=== PATIENT | female | born 1975 | race Asian ===

== ENCOUNTER 2017-01-11 12:00 | Inpatient (IN) | payer OTHER ==
[2017-01-18] MEDS ORDERED: ELECTROLYTE-148 SOLN 500 ML IV SCH (07:30)
[2017-01-18] MEDS ORDERED: CITRIC ACID/SODIUM CITRATE 30 ML UNIT-DOSE CUP PO ONE (08:15)
[2017-01-18] MEDS ORDERED: TUBERCULIN PPD 5 TU/0.1ML SYRINGE (IN PATIENT USE ONLY) ID ONE (08:15)
[2017-01-18 08:28] VITALS: BMI 31.2
[2017-01-18] MEDS ORDERED: ELECTROLYTE-148 SOLN 1,000 ML IV SCH (08:30)
[2017-01-18] MEDS ORDERED: IBUPROFEN 800 MG/8 ML IJ IVPB PRN (08:46)
[2017-01-18] MEDS ORDERED: ONDANSETRON 4 MG/2 ML VIAL IVPUSH PRN (08:47)
--- NOTE | 2017-01-18 08:49 | HP ---
[id number] of Present Illness: 41 y/o with SIUP at 39 weeks by LMP (38 weeks by ultrasound) here for scheduled repeat section. Patient has history of diabetes, poorly controlled during . Pt also inconsistent with care. Pt admits to +FM, no VB/LOF/Ctx. HIV negative. History Source: Patient, Medical Record Limitations to Obtaining History: No Limitations - Past Medical History [facility]: No: Migraine, Seizure Cardiovascular: No: AFIB, CAD, Deep Vein Thrombosis, [place] Pulmonary: Yes: Bronchitis (h/o bronchitis). No: COPD, Pneumonia Renal/: No: Hematuria, UTI Reproductive: No: Fibroids, PID, Polycystic Ovary Syndrome ...: 7 ...Para: 4 ...Term: 4 ...: 0 ...Spon : 0 ...Induced : 2 ...Multiple Gestation: 0 ...LMP: 04/20/16 ... Weeks Gestation by Dates: 39.0 ...EDC by Dates: 01/25/17 ...EDC by Sono: 02/01/17 Heme/Onc: No: Anemia Infectious Disease: No: AIDS, HIV, MRSA Psych: No: Anxiety, Bipolar, Depression - Past Surgical History Past Surgical History: Yes: (X4) Hx Myomectomy: No Hx Transabdominal Cerclage: No - Smoking History Smoking history: Never smoked Have you smoked in the past 12 months: No - Alcohol/Substance Use Hx Alcohol Use: No - Social History Usual Living Arrangement: Yes: With Spouse ADL: Independent History of Recent Travel: Yes Home Medications - Allergies Allergies/Adverse Reactions: Allergies Allergy/AdvReac Type Severity Reaction Status Date / Time fish oil (anchovy, sardine) Allergy Severe Verified 01/17/17 17:09 pine nut Allergy Intermediate itchy, rash Verified 01/17/17 17:09 No Known Drug Allergies Allergy Verified 01/17/17 17:09 - Home Medications Home Medications: Ambulatory Orders Glyburide/Metformin HCl [Glyburide-Metformin 2.5-500 mg] 2.5 each PO DAILY 01/11 Metformin HCl 500 mg PO BID 01/11/17 Pnv95/Ferrous Fumarate/FA [ Vitamin Tablet] 1 each PO DAILY 01/11/17 Review of Systems - Review of Systems Constitutional: reports: No Symptoms Eyes: reports: No Symptoms HENT: reports: No Symptoms Neck: reports: No Symptoms Cardiovascular: reports: No Symptoms Respiratory: reports: Cough. denies: SOB Gastrointestinal: reports: No Symptoms Genitourinary: reports: No Symptoms Breasts: reports: No Symptoms Reported Musculoskeletal: reports: No Symptoms Integumentary: reports: No Symptoms Neurological: reports: No Symptoms Endocrine: reports: No Symptoms Hematology/Lymphatic: reports: No Symptoms Psychiatric: reports: No Symptoms Physical Exam - Maternity Vital Signs: Vital Signs Temperature 97.7 F 01/18/17 07:05 Pulse Rate 87 01/18/17 07:05 Respiratory Rate 18 01/18/17 07:05 Blood Pressure 123/85 01/18/17 07:05 O2 Sat by Pulse Oximetry (%) Constitutional: Yes: Well Nourished, No Distress, Calm Eyes: Yes: Conjunctiva Clear, EOM Intact HENT: Yes: Atraumatic, Normocephalic Neck: Yes: Supple, Trachea Midline Cardiovascular: Yes: Regular Rate and Rhythm Lungs: Clear to auscultation Breast(s): Yes: WNL - Abdominal Exam/OB Number of Fetuses: Single Presentation: Vertex Contractions: Yes Regularity: Irregular Intensity: Unaware Monitor Mode: External Heart Rate (range): 150 Category: I Decelerations: None - Vaginal Exam/OB Vaginal Bleediing: No Amniotic Membrane Status: Intact Presentation: Vertex/Position - Physical Exam Edema: LLE: 1+, RLE: 1+ (nonpitting) Psychiatric: Yes: Alert, Oriented Hemorrhage Risk Assessment - Risk Factors Medium Risk Factors: Yes: Prior , uterine surgery,or multiple laparotomies, History of previous hemorrhage High Risk Factors: Yes: None Risk Score: 2 Risk Level: High Risk Problem List - Problems (1) Diabetes in Code(s): O24.919 - UNSP DIABETES MELLITUS IN , UNSPECIFIED TRIMESTER (2) Term Code(s): Z34.80 - ENCOUNTER FOR SUPRVSN OF NORMAL , UNSP TRIMESTER (3) History of delivery Code(s): Z98.891 - HISTORY OF UTERINE SCAR FROM PREVIOUS SURGERY Assessment/Plan 41 y/o female with SIUP at 39 weeks gestation for scheduled repeat cesaren section, also with uncontrolled DM - FHTs cat 1 - Pt NPO since 3 am - was light meal of crackers only, anesthesia aware, ok to do C section after 6 hours - Keep pt NPO, apply SCDs, prep patient and OR for c section - anesthesia and nursing aware - DM - BG this a.m. 146, will monitor closely post and consider endocrine consultation
[2017-01-18] MEDS ORDERED: METHYLERGONOVINE MALEATE 0.2 MG/1 ML AMP IM PRN (09:15)
[2017-01-18] MEDS ORDERED: BENZOCAINE 28 GM HEMORRHOIDAL OINTMENT TP PRN (09:15)
[2017-01-18 11:00] LABS: ARTERIAL BLD GAS O2 SATURATION 5.9 % (90-98.9); ARTERIAL BLOOD GAS BASE EXCESS -1.2 meq/l (-2-2); ARTERIAL BLOOD GAS HCO3 28.7 meq/L (22-26); ARTERIAL BLOOD GAS PO2 9.2 mmHg (80-100); ARTERIAL BLOOD GAS pH 7.23 (7.35-7.45)
[2017-01-18 11:01] LABS: LPM/O2% 21%; PT. ON O2? NO; TYPE OF O2 ROOM AIR
[2017-01-18 11:06] LABS: VENOUS BLOOD GAS HCO3 25.5 meq/L (19-25); VENOUS PH 7.32 (7.32-7.42)
--- NOTE | 2017-01-18 11:17 | OP ---
Operative Note - Note: Operative Date: 01/18/17 Pre-Operative Diagnosis: Previous Section X 4. Diabetes preexisting Type 2 . iup at 38 weeks. elderly multiparity Operation: Repeat Section Findings: Live female infant Post-Operative Diagnosis: Same as Pre-op Surgeon: Chaparrita Smith Executive Services Administrator: Jocelyn Ricks Anesthesiologist/PRIMARY COUNSELOR: Tito Everett Anesthesia: Spinal Estimated Blood Loss (mls): 600 Operative Report Dictated: Yes
[2017-01-18] MEDS: OXYTOCIN 20 UNITS in 0.9% NS 1,000 ML IV SCH (11:30)
[2017-01-18] MEDS: CEFAZOLIN 1 GM/D5W 50 ML IVPB SCH ×2 (12:20→17:05)
--- NOTE | 2017-01-18 13:06 | OP ---
DATE OF OPERATION: 01/18/2017 PREOPERATIVE DIAGNOSES: Previous section x4; preexisting diabetes, type 2; intrauterine at 38 weeks; elderly multigravida. OPERATION: Repeat section. POSTOPERATIVE DIAGNOSES: Previous section x4; preexisting diabetes, type 2; intrauterine at 38 weeks; elderly multigravida; live female . SURGEON: Chaparrita Smith MD WHEEL TUNER: Jocelyn Ricks DO ANESTHESIA: Spinal. ANESTHESIOLOGIST: Tito Everett MD PROCEDURE: Patient was taken to the operating room. Placed in supine position. Prepped and draped in the usual sterile fashion. A timeout was performed in accordance with hospital regulation. Scalpel was then used to go through the previous scar. Cautery was then used to go through the layers of the abdominal wall to the level of the fascia. Fascia was cut in the midline and cautery was used to open the fascia in a smiling fashion. Eulalia was then used to bluntly and sharply dissect the rectus muscle at the fascia. Muscle split in the midline. Peritoneal cavity was then entered and then carried upward and downward. Bladder retractor was then placed. Vesiculouterine reflection was then entered. Bladder was bluntly dissected out of the operative field. Scalpel was then used to make a low transverse uterine incision. Uterus was noted to be attached on the left side. Bandage scissors were then used to open the uterus in smiling fashion. A live female was delivered in OP position. Nose and mouth suction performed. Shoulders were delivered without difficulty. Cord was clamped and cut. Infant was handed to dry cell and battery assembler. Placenta was manually extracted from the uterus. Uterus was exteriorized and cleaned with clean lap pads. Uterine incision then closed using 0 Biosyn suture, 1st layer continuous and locking, 2nd layer imbricating the 1st layer. Hemostasis was achieved and uterus interiorized. Abdominal cavity cleaned with clean lap pads. Some adhesions were noted and found to be lysed. Intercede was placed over the raw surface of the uterus. Peritoneum was closed using 0 Biosyn suture. Fascia was then closed using 0 Vicryl suture in 2 parts. Muscle was then reapproximated in midline using 0 Biosyn suture. Fascia was then closed in 2 parts using 0 Vicryl suture. The skin was then closed using 0 Vicryl in subcuticular fashion. Wound was washed and dressed. Estimated blood loss 600 mL. Josi IRVING/[id number] MTDD
[2017-01-18] MEDS: metFORMIN HCL 500 MG TABLET (FP) PO SCH (17:06)
[2017-01-19] MEDS ORDERED: CEFAZOLIN (PRE-DOCKED) 50 ML IVPB ONE (01:34)
[2017-01-19] MEDS: CEFAZOLIN 1 GM/D5W 50 ML IVPB SCH (01:40)
[2017-01-19] MEDS: glyBURIDE 2.5 MG TABLET (FP) PO SCH (07:00)
[2017-01-19] MEDS ORDERED: glyBURIDE 2.5 MG TABLET (FP) PO SCH (07:00)
[2017-01-19] MEDS ORDERED: metFORMIN HCL 500 MG TABLET (FP) PO SCH ×2 (07:00→10:00)
[2017-01-19] MEDS: metFORMIN HCL 500 MG TABLET (FP) PO SCH ×2 (07:00→17:24)
[2017-01-19 08:45] LABS: BASOPHIL 0.2 % (0-2.0); EOSINOPHIL 1.4 % (0-4.5); MCH 27.6 pg (25.7-33.7); MCHC 33.1 g/dl (32.0-36.0); MEAN CELL VOLUME 83.3 fl (80-96); MEAN PLT VOLUME 8.3 fl (7.5-11.1); NEUTROPHILS 77.6 % (42.8-82.8); PLATELET COUNT 138 K/MM3 (134-434); RDW 14.9 % (11.6-15.6); WHITE BLOOD COUNT 7.3 K/mm3 (4.0-10.0)
--- NOTE | 2017-01-19 09:12 | PN ---
Post Progress Note - Subjective Subjective: Pt doing well. Pain controled. Tolerating regular diet, ambulating, NO void yet. OOB to chair. Denies CP/SOB/F/c/QUAN. Type of Delivery: Repeat C/S Vital Signs: Vital Signs Temperature 97.8 F 01/19/17 05:44 Pulse Rate 82 01/19/17 05:44 Respiratory Rate 20 01/19/17 05:44 Blood Pressure 113/71 01/19/17 05:44 O2 Sat by Pulse Oximetry (%) 99 01/18/17 12:45 Breast Exam: Yes: Soft Uterus: Yes: Fundus Firm, Fundus below umbilicus Incision: Yes: Dressing dry and intact Abdomen/GI: Yes: Abdomen soft, Tender, Passing flatus, Tolerating PO. No: Abdominal Distention Lochia: Yes: Rubra Lochia, amount: Small Perineum: Yes: Intact - Labs Labs: CBC WBC 7.3 K/mm3 (4.0-10.0) 01/19/17 08:00 RBC 3.84 M/mm3 (3.60-5.2) 01/19/17 08:00 Hgb 10.6 GM/dL (10.7-15.3) L D 01/19/17 08:00 Hct 32.0 % (32.4-45.2) L D 01/19/17 08:00 MCV 83.3 fl (80-96) 01/19/17 08:00 MCHC 33.1 g/dl (32.0-36.0) 01/19/17 08:00 RDW 14.9 % (11.6-15.6) 01/19/17 08:00 Plt Count 138 K/MM3 (134-434) D 01/19/17 08:00 MPV 8.3 fl (7.5-11.1) 01/19/17 08:00 Neutrophils % 77.6 % (42.8-82.8) D 01/19/17 08:00 Lymphocytes % 13.8 % (8-40) D 01/19/17 08:00 Monocytes % 7.0 % (3.8-10.2) 01/19/17 08:00 Eosinophils % 1.4 % (0-4.5) D 01/19/17 08:00 Basophils % 0.2 % (0-2.0) 01/19/17 08:00 Problem List - Problems (1) Diabetes in Code(s): O24.919 - UNSP DIABETES MELLITUS IN , UNSPECIFIED TRIMESTER (2) Term Code(s): Z34.80 - ENCOUNTER FOR SUPRVSN OF NORMAL , UNSP TRIMESTER (3) History of delivery Code(s): Z98.891 - HISTORY OF UTERINE SCAR FROM PREVIOUS SURGERY Assessment/Plan 41 y/o POD#1 s/p repeat LTCS - AFVSS - Hgb 10.6 post op, pt stable and doing well - DM2 - continue on glyburide and metformin - regular (diabetic) diet, PO pain meds - ambulation - lovenox - routine care
[2017-01-19] MEDS ORDERED: BISACODYL 10 MG SUPP.RECT RC PRN (09:15)
[2017-01-19] MEDS ORDERED: glyBURIDE 2.5 MG TABLET (FP) PO ONE (09:51)
[2017-01-19] MEDS ORDERED: PATIENT'S OWN MEDICATION (NON-FORMULARY) (Glyburide/Metformin Hcl [Glyburide-Metformin 2.5 PO SCH (10:00)
[2017-01-19] MEDS: ENOXAPARIN NA (PORCINE) 40 MG/0.4 ML DISP.SYRIN SQ SCH (10:37)
[2017-01-19] MEDS: PRENATAL VITAMINS W/ FOLIC ACID TABLET (FP) PO SCH (10:38)
--- NOTE | 2017-01-19 10:39 | PN ---
Progress Note (short form) - Note Progress Note: ANESTHESIOLOGY POST-OP CHECK 41F s/p repeat under spinal anesthesia, POD #1. No acute complaints, ambulating, voiding, pain 4/10 - tolerable. Denies N/V, backache, headache, numbness, weakness. Vital Signs Temperature 97.8 F 01/19/17 05:44 Pulse Rate 82 01/19/17 05:44 Respiratory Rate 20 01/19/17 05:44 Blood Pressure 113/71 01/19/17 05:44 O2 Sat by Pulse Oximetry (%) 99 01/18/17 12:45 Active Medications Benzocaine (Americaine Ointment -) 1 applic TP PRN PRN PRN Reason: PAIN Bisacodyl (Dulcolax Suppository -) 10 mg RC PRN PRN PRN Reason: CONSTIPATION Diphenhydramine HCl (Benadryl Injection -) 25 mg IVPUSH Q4H PRN PRN Reason: itching Enoxaparin Sodium (Lovenox -) 40 mg SQ DAILY [facility] Last Admin: 01/19/17 10:37 Dose: 40 mg Glyburide (Diabeta -) 2.5 mg PO DAILY@0700 [facility] Last Admin: 01/19/17 07:00 Dose: 2.5 mg Oxytocin/Sodium Chloride (Normal Saline+20 Units Oxytocin -) 1,000 mls @ 125 mls/hr IV ASDIR [facility] Last Admin: 01/18/17 11:30 Dose: 125 mls/hr Ibuprofen (Motrin -) 600 mg PO Q4H PRN PRN Reason: PAIN Metformin HCl (Glucophage -) 500 mg PO BIDAC [facility] Last Admin: 01/19/17 07:00 Dose: 500 mg Methylergonovine Maleate (Methergine Injection -) 0.2 mg IM Q4H PRN PRN Reason: Excessive Bleeding (L&D) Last Admin: 01/18/17 12:15 Dose: 0.2 mg Oxycodone HCl (Roxicodone -) 10 mg PO Q4H PRN PRN Reason: PAIN LEVEL 6-10 Oxycodone HCl (Roxicodone -) 5 mg PO Q4H PRN PRN Reason: PAIN LEVEL 1-5 Multivit/Folic Acid/Iron ( Vitamins (Sjr) -) 1 tab PO DAILY [facility] Last Admin: 01/19/17 10:38 Dose: 1 tab Simethicone (Mylicon -) 80 mg PO Q4H PRN PRN Reason: GAS Gen : awake, alert No apparent anesthesia complications. Pain well controlled. Continue management as per primary team.
[2017-01-19] MEDS: OXYTOCIN 20 UNITS in 0.9% NS 1,000 ML IV SCH (12:06)
[2017-01-19] MEDS: oxyCODONE HCL 5 MG TABLET PO PRN ×2 (12:15→18:35)
[2017-01-19] MEDS: SIMETHICONE 80 MG TAB.CHEW (FP) PO PRN ×2 (12:16→18:34)
[2017-01-19] MEDS: IBUPROFEN 600 MG TABLET (FP) PO PRN ×2 (12:16→18:34)
[2017-01-20] MEDS: SIMETHICONE 80 MG TAB.CHEW (FP) PO PRN ×5 (03:24→22:53)
[2017-01-20] MEDS: IBUPROFEN 600 MG TABLET (FP) PO PRN ×5 (03:24→22:53)
[2017-01-20] MEDS: oxyCODONE HCL 5 MG TABLET PO PRN ×4 (08:29→22:55)
[2017-01-20] MEDS: metFORMIN HCL 500 MG TABLET (FP) PO SCH ×3 (08:37→17:11)
[2017-01-20] MEDS: glyBURIDE 2.5 MG TABLET (FP) PO SCH ×2 (08:48→08:49)
--- NOTE | 2017-01-20 10:34 | PN ---
Post Progress Note - Subjective Subjective: 41 yo Para 5 status post repeat , seen and evaluated. She's out of bed to chair; no complaints. Post Day: 2 Type of Delivery: Repeat C/S Vital Signs: Vital Signs Temperature 98.0 F 01/19/17 21:41 Pulse Rate 97 H 01/19/17 21:41 Respiratory Rate 20 01/19/17 21:41 Blood Pressure 110/64 01/19/17 21:41 O2 Sat by Pulse Oximetry (%) 99 01/18/17 12:45 Breast Exam: Yes: Soft Uterus: Yes: Fundus Firm Incision: Yes: Dressing dry and intact Abdomen/GI: Yes: Abdomen soft, Tolerating PO Lochia: Yes: Rubra Lochia, amount: Small Extremities: Yes: Calves non-tender Perineum: Yes: Intact Activity: Ambulating - Labs Labs: CBC WBC 7.3 K/mm3 (4.0-10.0) 01/19/17 08:00 RBC 3.84 M/mm3 (3.60-5.2) 01/19/17 08:00 Hgb 10.6 GM/dL (10.7-15.3) L D 01/19/17 08:00 Hct 32.0 % (32.4-45.2) L D 01/19/17 08:00 MCV 83.3 fl (80-96) 01/19/17 08:00 MCHC 33.1 g/dl (32.0-36.0) 01/19/17 08:00 RDW 14.9 % (11.6-15.6) 01/19/17 08:00 Plt Count 138 K/MM3 (134-434) D 01/19/17 08:00 MPV 8.3 fl (7.5-11.1) 01/19/17 08:00 Neutrophils % 77.6 % (42.8-82.8) D 01/19/17 08:00 Lymphocytes % 13.8 % (8-40) D 01/19/17 08:00 Monocytes % 7.0 % (3.8-10.2) 01/19/17 08:00 Eosinophils % 1.4 % (0-4.5) D 01/19/17 08:00 Basophils % 0.2 % (0-2.0) 01/19/17 08:00 Problem List - Problems (1) Status post repeat low transverse section Code(s): Z98.891 - HISTORY OF UTERINE SCAR FROM PREVIOUS SURGERY Assessment/Plan Status post repeat Stable Continue routine Post op care
[2017-01-20] MEDS: ENOXAPARIN NA (PORCINE) 40 MG/0.4 ML DISP.SYRIN SQ SCH (10:49)
[2017-01-20] MEDS: PRENATAL VITAMINS W/ FOLIC ACID TABLET (FP) PO SCH (10:49)
[2017-01-20] MEDS: OXYTOCIN 20 UNITS in 0.9% NS 1,000 ML IV SCH (10:49)
[2017-01-21] MEDS: SIMETHICONE 80 MG TAB.CHEW (FP) PO PRN ×4 (07:02→21:50)
[2017-01-21] MEDS: oxyCODONE HCL 5 MG TABLET PO PRN ×4 (07:02→21:51)
[2017-01-21] MEDS: IBUPROFEN 600 MG TABLET (FP) PO PRN ×4 (07:03→21:50)
[2017-01-21 07:31] LABS: BASOPHIL 0.2 % (0-2.0); EOSINOPHIL 5.3 % (0-4.5); MCH 27.9 pg (25.7-33.7); MCHC 33.2 g/dl (32.0-36.0); MEAN PLT VOLUME 7.8 fl (7.5-11.1); PLATELET COUNT 162 K/MM3 (134-434); RDW 15.4 % (11.6-15.6)
[2017-01-21] MEDS: glyBURIDE 2.5 MG TABLET (FP) PO SCH (08:02)
[2017-01-21] MEDS: metFORMIN HCL 500 MG TABLET (FP) PO SCH ×2 (08:02→16:59)
--- NOTE | 2017-01-21 09:28 | PN ---
Progress Note, Physician Chief Complaint: 41 y/o female s/p sectio condition is stable she is ambilating well tolorating po well. - Current Medication List Current Medications: Active Medications Benzocaine (Americaine Ointment -) 1 applic TP PRN PRN PRN Reason: PAIN Bisacodyl (Dulcolax Suppository -) 10 mg RC PRN PRN PRN Reason: CONSTIPATION Diphenhydramine HCl (Benadryl Injection -) 25 mg IVPUSH Q4H PRN PRN Reason: itching Enoxaparin Sodium (Lovenox -) 40 mg SQ DAILY [facility] Last Admin: 01/20/17 10:49 Dose: 40 mg Glyburide (Diabeta -) 2.5 mg PO DAILY@0700 [facility] Last Admin: 01/21/17 08:02 Dose: 2.5 mg Oxytocin/Sodium Chloride (Normal Saline+20 Units Oxytocin -) 1,000 mls @ 125 mls/hr IV ASDIR [facility] Last Admin: 01/20/17 10:49 Dose: Not Given Ibuprofen (Motrin -) 600 mg PO Q4H PRN PRN Reason: PAIN Last Admin: 01/21/17 07:03 Dose: 600 mg Metformin HCl (Glucophage -) 500 mg PO BIDAC [facility] Last Admin: 01/21/17 08:02 Dose: 500 mg Methylergonovine Maleate (Methergine Injection -) 0.2 mg IM Q4H PRN PRN Reason: Excessive Bleeding (L&D) Last Admin: 01/18/17 12:15 Dose: 0.2 mg Oxycodone HCl (Roxicodone -) 10 mg PO Q4H PRN PRN Reason: PAIN LEVEL 6-10 Last Admin: 01/21/17 07:02 Dose: 10 mg Oxycodone HCl (Roxicodone -) 5 mg PO Q4H PRN PRN Reason: PAIN LEVEL 1-5 Last Admin: 01/19/17 18:35 Dose: 5 mg Multivit/Folic Acid/Iron ( Vitamins (Sjr) -) 1 tab PO DAILY [facility] Last Admin: 01/20/17 10:49 Dose: 1 tab Simethicone (Mylicon -) 80 mg PO Q4H PRN PRN Reason: GAS Last Admin: 01/21/17 07:02 Dose: 80 mg - Objective Vital Signs: Vital Signs Temperature 98.1 F 01/21/17 08:27 Pulse Rate 71 01/21/17 08:27 Respiratory Rate 20 01/21/17 08:27 Blood Pressure 114/78 01/21/17 08:27 O2 Sat by Pulse Oximetry (%) 99 01/18/17 12:45 Constitutional: Yes: Well Nourished, No Distress Eyes: Yes: WNL HENT: Yes: WNL Neck: Yes: WNL, Supple Cardiovascular: Yes: WNL, Regular Rate and Rhythm Respiratory: Yes: WNL, Regular Gastrointestinal: Yes: WNL, Normal Bowel Sounds ...Rectal Exam: Yes: WNL Genitourinary: Yes: WNL Breast(s): Yes: WNL Musculoskeletal: Yes: WNL Extremities: Yes: WNL Edema: No Peripheral Pulses WNL: Yes Integumentary: Yes: WNL Wound/Incision: Yes: Clean/Dry Neurological: Yes: Alert, Oriented ...Motor Strength: WNL Psychiatric: Yes: Alert, Oriented Labs: CBC, BMP 01/21/17 06:10 Assessment/Plan condition stable s/p section day #3 continue current care
[2017-01-21] MEDS: ENOXAPARIN NA (PORCINE) 40 MG/0.4 ML DISP.SYRIN SQ SCH (09:44)
[2017-01-21] MEDS: PRENATAL VITAMINS W/ FOLIC ACID TABLET (FP) PO SCH (09:44)
--- NOTE | 2017-01-21 14:08 | DS ---
Physical Exam-SOFTWARE IMPLEMENTATION PROJECT MANAGER Vital Signs: Vital Signs Temperature 98.1 F 01/21/17 08:27 Pulse Rate 71 01/21/17 08:27 Respiratory Rate 20 01/21/17 08:27 Blood Pressure 114/78 01/21/17 08:27 O2 Sat by Pulse Oximetry (%) 99 01/18/17 12:45 Constitutional: Yes: Well Nourished, No Distress, Calm Eyes: Yes: Conjunctiva Clear, EOM Intact HENT: Yes: Atraumatic, Normocephalic Neck: Yes: Supple, Trachea Midline Cardiovascular: Yes: Regular Rate and Rhythm Respiratory: Yes: Regular, CTA Bilaterally Gastrointestinal: Yes: Normal Bowel Sounds, Soft ....Post : Yes: Uterus firm, Uterus non-tender Wound/Incision: Yes: Clean/Dry, Well Approximated, Sutures Intact Neurological: Yes: Alert, Oriented Psychiatric: Yes: Alert, Oriented Labs: CBC, BMP 01/21/17 06:10 Delivery - Delivery Section: Repeat, Low Flap Transverse Type of Anesthesia: Spinal Episiotomy/Laceration: None EBL (cc): 600 Delivery, Single - Stages of Labor Date of Delivery: 01/18/17 Time of Delivery: 10:36 Date Placenta Delivered: 01/18/17 Time Placenta Delivered: 10:40 Placenta: Yes: Manual Removal - Condition of Associate Marketing Manager/Rcp Present: Yes Name: Jeffrey Bangura Infant Gender: Female Weight: 10 lb Position: OP Total Hours ROM (Hrs/Mins): 0/04 - 1 Minute Total Score: 9 5 Minutes Total Score: 9 - [place] Feeding Plan Initial Plan: Exclusive throughout hospitalization Discharge Summary Reason For Visit: C/SECTION Current Active Problems Diabetes in (Acute) History of delivery (Acute) Status post repeat low transverse section (Acute) Term (Acute) Procedures: Principal: Repeat low transverse section. Hospital Course: Patient admitted in 01/18/17 for scheduled delivery - pt with history of 4 prior deliveries. Pt underwent an uncomplicated repeat delivery - see operative report for full details. Pt recovered well post op, and on post op day 4 was tolerating diet, ambulating, voiding and lochia rubra was minimal. Pt was discharged home in stable condition on post op day 4. Condition: Good - Instructions Diet, Activity, Other Instructions: Physical activity Resume your normal everyday activity as tolerated but no heavy lifting or strenuous exercise until seen by your surgeon. You may walk unlimited amounts and climb stairs. You may resume driving the car when you feel safe and comfortable behind the wheel. No sexual activity as instructed for 6 weeks. Wound care . If there are tapes on the skin leave them in place. They will peel off in the next 7 to 10 days. Do Not Peel them off. You may shower the day after surgery. If there are tapes present on the skin, you may shower over them. Diet There are no dietary restrictions. Eat healthy, high-fiber foods. Drink 6 to 8 glasses of liquid each day. This will assist in keeping your bowels regular. Pain management You may take Tylenol or Ibuprofen (for example, Motrin, Advil etc.)over the counter for pain. If any pain prescription medication is ordered should be taken as prescribed for moderate to severe pain. Call MD for any of the following: Severe pain not relieved by medication Fever of 101 or higher Excessive bleeding or drainage on dressing Inability to urinate Referrals: Chaparrita Smith MD [Staff Physician] - 1 Week Disposition: HOME - Home Medications Comprehensive Discharge Medication List: Ambulatory Orders Glyburide/Metformin HCl [Glyburide-Metformin 2.5-500 mg] 2.5 each PO DAILY 01/11 Metformin HCl 500 mg PO BID 01/11/17 Pnv95/Ferrous Fumarate/FA [ Vitamin Tablet] 1 each PO DAILY 01/11/17
[2017-01-22] MEDS: oxyCODONE HCL 5 MG TABLET PO PRN (04:56)
[2017-01-22] MEDS: SIMETHICONE 80 MG TAB.CHEW (FP) PO PRN ×2 (04:57→11:12)
[2017-01-22] MEDS: IBUPROFEN 600 MG TABLET (FP) PO PRN ×2 (04:57→11:12)
[2017-01-22] MEDS: metFORMIN HCL 500 MG TABLET (FP) PO SCH (08:11)
[2017-01-22] MEDS: glyBURIDE 2.5 MG TABLET (FP) PO SCH (08:11)
[2017-01-22 08:42] VITALS: BP 125/81; PULSE 78; TEMP 98.1
[2017-01-22] MEDS: ENOXAPARIN NA (PORCINE) 40 MG/0.4 ML DISP.SYRIN SQ SCH (09:43)
[2017-01-22] MEDS: PRENATAL VITAMINS W/ FOLIC ACID TABLET (FP) PO SCH (09:43)
--- NOTE | 2017-01-24 15:40 | PATH ---
Surgical Pathology Report Patient Name: ZINA EDDY Med. Rec. #: [id number] /Age/Gender: 1975 (Age: 41) / F Account: [id number] Location: [facility] OBS/CYBER SECURITY SYSTEMS ENGINEER Taken: 01/18/2017 Received: 01/19/2017 Reported: 01/24/2017 Physicians: Jocelyn Ricks M.D. Specimen(s) Received PLACENTA Clinical History ; type II diabetic since 2013 on oral medication; c/section x4: 04/11, 03/21, 05/23, 04/24 Repeat c/section Final Diagnosis ----- PLACENTA, DELIVERY: FOCALLY DISRUPTED THIRD TRIMESTER PLACENTA WITH FOCAL PARENCHYMAL HEMORRHAGE MILD INCREASE IN PREVILLOUS FIBRIN DEPOSITION, THREE VESSEL UMBILICAL CORD, AND PLACENTAL MEMBRANES FOCAL EARLY ACUTE CHORIOAMNIONITIS. ___ Electronically Signed Anson Church M.D. Gross Description The specimen is received fresh, labeled "placenta" and is a 680 gram, 19.0 x 19.0 x 3.0 cm placenta with attached membranes and umbilical cord. The attached membranes are armenta, translucent with focal opacities and insert marginally. The umbilical cord measures 27 cm in length and averages 1.5 cm in diameter. The cord inserts eccentrically, 6 cm to the nearest margin. No true knots or strictures are identified. Cut surface of the umbilical cord reveals 3 vessels. The surface is vann-blue with fibrin deposition and appropriate caliber vessels. The maternal surface is red-brown with focal defects. Sectioning reveals a 1.3 cm in greatest dimension hemorrhagic lesion. The remaining placental parenchyma is red-brown and spongy. Service Order Taker sections are submitted in 4 cassettes as follows: 1-membrane rolls the umbilical cord; 2-lesion; 3-4-full thickness sections of placenta. /01/23/2017 [place]/01/23/2017
== END 2017-01-22 12:30 | disposition home or self-care (01) | DRG 766 ==
LOC: JLDR 01-18 07:05 → J3W 01-18 13:00
PROVIDERS: ADMIT Obstetrics & Gynecology; ATTEND Obstetrics & Gynecology
PROC: 10D00Z1 Extraction of Products of Conception, Low, Open Approach (ICD-10-PCS; principal; 2017-01-18)
DX: O24.419 Gestational diabetes mellitus in pregnancy, unspecified control (principal); O34.211 Maternal care for low transverse scar from previous cesarean delivery; Z3A.39 39 weeks gestation of pregnancy; Z37.0 Single live birth; Z79.899 Other long term (current) drug therapy
CPT/HCPCS: 36415; 36600; 82803; 85025; 88307-TC